=== PATIENT | male | born 1970 | race Native Hawaiian/Other Pacific Islander ===

== ENCOUNTER 2016-09-25 08:48 | Outpatient (CLI) | payer BC ==
[~2016-09-25 08:48] MED LIST: CELEXA20 MG PO; HYDR5TAB9 PO; NEXIUM20 MG PO
[2016-09-25 09:35] LABS: PLATELET COUNT 218 K/uL (142-355)
[2016-09-25 11:41] LABS: POTASSIUM 3.7 mmol/L (3.6-5.2); SODIUM 144 mmol/L (136-145)
== END 2016-09-25 23:32 | disposition home or self-care (01) ==
LOC: LABW 08:48
PROVIDERS: Internal Medicine
DX: R10.12 Left upper quadrant pain (principal)
CPT/HCPCS: 36415; 80053; 81000; 82150; 83690; 85027

== ENCOUNTER 2016-10-05 15:46 | Outpatient (CLI) | payer BC | END 2016-10-05 16:46 | disposition home or self-care (01) | LOC: LABW 15:46 | DX: R10.9 Unspecified abdominal pain (principal) | CPT/HCPCS: 82272; 87015; 87045; 87205; 87206; 87328; 87329; 87493; 87798; 87899 ==

== ENCOUNTER 2016-10-10 08:51 | Outpatient (CLI) | payer BC | END 2016-10-10 19:06 | disposition home or self-care (01) | LOC: US 08:51 | DX: R10.9 Unspecified abdominal pain (principal) ==

== ENCOUNTER 2017-07-11 09:00 | Outpatient (CLI) | payer BC | END 2017-07-11 19:11 | disposition home or self-care (01) | LOC: US 09:00 | DX: R10.11 Right upper quadrant pain (principal) ==

== ENCOUNTER 2018-01-15 06:59 | Outpatient (CLI) | payer BC ==
[2018-01-15 07:48] LABS: PLATELET COUNT 206 K/uL (142-355)
== END 2018-01-15 21:47 | disposition home or self-care (01) ==
LOC: LABW 06:59
PROVIDERS: Psychiatry & Neurology Neurology
DX: G60.8 Other hereditary and idiopathic neuropathies (principal)
CPT/HCPCS: 36415; 82607; 82728; 82746; 82784; 83540; 83550; 84165; 84439; 84443; 85027; 85044; 85651; 86039; 86140; 86430

== ENCOUNTER 2018-01-20 08:29 | Outpatient (CLI) | payer BC | END 2018-01-20 19:56 | disposition home or self-care (01) | LOC: MRI 08:29 | DX: G60.8 Other hereditary and idiopathic neuropathies (principal) | CPT/HCPCS: A9576 ==

== ENCOUNTER 2018-12-17 16:33 | Outpatient (CLI) | payer BC | END 2018-12-17 23:48 | disposition home or self-care (01) | LOC: CT 16:33 | DX: N48.89 Other specified disorders of penis (principal) ==

== ENCOUNTER 2019-07-22 09:54 | Outpatient (CLI) | payer BC | END 2019-07-22 20:12 | disposition home or self-care (01) | LOC: RESP 09:54 | DX: I10 Essential (primary) hypertension (principal) | CPT/HCPCS: 93306 ==

== ENCOUNTER 2019-07-24 08:49 | Outpatient (CLI) | payer BC | END 2019-07-24 19:24 | disposition home or self-care (01) | LOC: US 08:49 | DX: M54.9 Dorsalgia, unspecified (principal) ==

== ENCOUNTER 2019-08-11 10:24 | Outpatient (CLI) | payer BC | END 2019-08-11 20:58 | disposition home or self-care (01) | LOC: NM 10:24 → RESP 10:24 → NM 20:58 | DX: I10 Essential (primary) hypertension (principal) ==

== ENCOUNTER 2021-05-02 08:06 | Outpatient (CLI) | payer BC | END 2021-05-02 19:27 | disposition home or self-care (01) | LOC: LABW 08:06 | PROVIDERS: ATTEND Internal Medicine | DX: K52.9 Noninfective gastroenteritis and colitis, unspecified (principal) | CPT/HCPCS: 83630; 87015; 87045; 87206; 87324; 87328; 87329; 87449; 87507; 87899 ==

== ENCOUNTER 2021-12-21 07:40 | Outpatient (CLI) | payer BC ==
[2021-12-21 08:12] LABS: PLATELET COUNT 181 K/uL (142-355)
== END 2021-12-21 19:06 | disposition home or self-care (01) ==
LOC: LABW 07:40
PROVIDERS: ATTEND Internal Medicine
DX: R10.11 Right upper quadrant pain (principal)
CPT/HCPCS: 36415; 82150; 83690; 85027; 86677

== ENCOUNTER 2021-12-29 08:09 | Outpatient (CLI) | payer BC | END 2021-12-29 18:51 | disposition home or self-care (01) | LOC: NM 08:09 | PROVIDERS: ATTEND Internal Medicine | DX: R10.11 Right upper quadrant pain (principal) | CPT/HCPCS: A9500 ==

== ENCOUNTER 2022-06-06 09:42 | Outpatient (CLI) | payer BC | END 2022-06-06 19:10 | disposition home or self-care (01) | LOC: RAD 09:42 | PROVIDERS: ATTEND Nurse Practitioner Family | DX: K21.9 Gastro-esophageal reflux disease without esophagitis (principal) ==

== ENCOUNTER 2022-07-06 09:38 | Outpatient (CLI) | payer BC | END 2022-07-06 19:04 | disposition home or self-care (01) | LOC: CT 09:38 | PROVIDERS: ATTEND Internal Medicine | DX: R22.1 Localized swelling, mass and lump, neck (principal); Z79.899 Other long term (current) drug therapy | CPT/HCPCS: 36415; 80048; 84439; 84443; Q9963 ==